=== PATIENT | male | born 1940 | race Caucasian/White ===

== ENCOUNTER 2019-02-13 08:08 | Emergency (ER) | payer OTHER ==
[~2019-02-13] VITALS: Ht 165.1 cm; Wt 64.0 kg
[2019-02-13 09:41] LABS: BASOPHILS % 0.5 % (0.0-2.0); HEMATOCRIT. 47.9 % (42.0-52.0); HEMOGLOBIN. 16.6 g/dL (14.0-18.0); LYMPHOCYTES % 16.8 % (20.0-50.0); MEAN CORPUSCULAR HEMOGLOBIN 33.3 pg (28.0-32.0); MEAN CORPUSCULAR VOLUME 96.2 fL (80.0-94.0); MEAN PLATELET VOLUME 8.1 fl (7.4-10.4); MONOCYTES % 6.7 % (2.0-8.0); PLATELET 159 x1000/uL (130-400); RED BLOOD CELL COUNT 4.98 mill/uL (4.7-6.1); RED CELL DISTRIBUTION WIDTH 13.5 % (11.6-14.6)
[2019-02-13 09:48] LABS: CHLORIDE 107 mEq/L (98-107)
[2019-02-13] MEDS ORDERED: PREDNISONE 20MG TABLET PO ONE (12:15)
[2019-02-13 12:19] VITALS: BP 146/89
== END 2019-02-13 12:30 | disposition home or self-care (01) ==
LOC: ER 08:25
DX: J44.1 Chronic obstructive pulmonary disease with (acute) exacerbation (principal); I48.91 Unspecified atrial fibrillation; E78.00 Pure hypercholesterolemia, unspecified; J45.909 Unspecified asthma, uncomplicated; I10 Essential (primary) hypertension
CPT/HCPCS: 36415; 71045; 80053; 83880; 84484; 85025; 93005; 99284; J7512